=== PATIENT | female | born 1990 | race Two or more races ===

== ENCOUNTER 2025-02-24 07:00 | Day surgery (SDC) | payer OTHER ==
[2025-02-17 11:08] LABS: URINE APPEARANCE Clear; URINE BILIRRUBIN Negative (NEGATIVE); URINE BLOOD Large; URINE COLOR Yellow; URINE GLUCOSE Negative (NEGATIVE); URINE KETONE Negative (NEGATIVE); URINE LEUKOCYTE Trace; URINE NITRATE Negative; URINE PROTEIN Negative (NEGATIVE); URINE UROBILINOGEN 0.2 E.U./dl
[2025-02-17 11:09] LABS: BASO % 0.5 % (0.1-1.2); EOS # 0.34 (0.04-0.54); EOS % 4.4 % (0.7-7.0); LYMPH # 2.14 (1.18-3.74); LYMPH % 27.5 % (19.3-53.1); MEAN PLATELET VOLUME 9.30 fl (9.4-12.4); MONO # 0.61 (0.24-0.82); MONO % 7.9 % (4.7-12.5); NEUT # 4.62 (1.56-6.13); NEUT % 59.4 % (34.0-71.1); RED CELL DISTRIBUTION WIDTH 12.5 % (11.6-14.4)
[2025-02-17 11:12] LABS: URINE BACTERIA 9.5 uL (0.0-1933); URINE EPITHELIAL CELLS 4.7 uL (0.0-38.8); URINE RBC 539.4 uL (0.0-20.8); URINE WBC 12.7 uL (0.0-23.2)
[2025-02-17 11:14] LABS: URINE CAST 0.43 uL (0.0-1.40)
[2025-02-17 11:49] LABS: INR 0.95
[2025-02-17 11:54] LABS: ALT/SGPT 19.0 U/L (12-78); AST/SGOT 6.0 U/L (15-37); BILIRUBIN TOTAL 0.42 mg/dL (0.3-1.2); BUN CREA RATIO 25.0 (7.0-25.0); CREATININE SERUM 0.64 mg/dL (0.55-1.02); GFR 105.6; GLOBULINA 3.4 G/DL (2.4-3.5); GLUCOSE FASTING 91.0 mg/dL (65-100); OSMOLALITY SERUM 284.0 MOSM/KG (275-295)
[2025-02-24] MEDS ORDERED: CEFAZOLIN SODIUM 1,000 MG VIAL ONE (07:51)
[2025-02-24] MEDS ORDERED: MIRALAX17 GM PO (07:56)
[2025-02-24] MEDS ORDERED: TYLENOL ARTHRI650 MG PO (07:56)
[2025-02-24] MEDS ORDERED: CELEBREX200MG PO (07:56)
[2025-02-24] MEDS ORDERED: TRAMADOL HCL50 MG PO (07:56)
[2025-02-24] MEDS ORDERED: BUPIVACAINE HCL/MPF 0.5% 30ML VIAL ONE (09:59)
[2025-02-24] MEDS ORDERED: KETOROLAC TROMETHAMINE 30 MG VIAL ONE (11:19)
[2025-02-24] MEDS ORDERED: SUGAMMADEX SODIUM 200 MG/2 ML VIAL IV ONE (11:21)
== END 2025-02-24 16:10 | disposition home or self-care (01) ==
LOC: CIR.AMB 07:00
PROVIDERS: ATTEND Surgery
DX: K80.10 Calculus of gallbladder with chronic cholecystitis without obstruction (principal)